=== PATIENT | male | born 1995 | race Hispanic/Latino ===

== ENCOUNTER 2020-02-17 08:35 | Emergency (ER) | payer SELFPAY ==
[2020-02-17] MEDS ORDERED: ACETAMINOPHEN 500 MG TAB ONE (09:14)
[2020-02-17 09:26] LABS: Urine Blood TRACE (NEG); Urine Glucose NEGATIVE (NEG); Urine Protein NEGATIVE (NEG); Urine Specific Gravity 1.025 (1.005-1.030)
--- NOTE | 2020-02-17 09:54 | ER ---
Nurse's Notes [facility] Name: Toni Gonzalez Age: 24 yrs Sex: Male : 1995 Arrival Date: 02/17/2020 Time: 08:38 Bed 8 Private MD: Diagnosis: Acute upper respiratory infection, unspecified Presentation: 02/16 08:44 Chief complaint: Patient states: "slight cough, feeling dehydrated, thirsty, and with aa5 no taste in my mouth". Pt denies fever, denies SOB, denies body aches, denies feeling weak. 08:44 Method Of Arrival: Ambulatory aa5 08:44 Coronavirus screen: Proceed with normal triage. Patient reports a cough. Patient denies aa5 shortness of breath or difficulty breathing. Patient denies travel on a cruise ship or to a country the [facility] currently lists as an affected area. Patient denies contact with known and/or suspected case of COVID-19. Ebola Screen: Patient negative for fever greater than or equal to 101.5 degrees Fahrenheit, and additional compatible Ebola Virus Disease symptoms. Initial Sepsis Screen: Does the patient meet any 2 criteria? RR > 20 per min. HR > 90 bpm. Does the patient have a suspected source of infection? No. Patient's initial sepsis screen is negative. Risk Assessment: Do you want to hurt yourself or someone else? Patient reports no desire to harm self or others. Onset of symptoms was February 16, 2020. 08:44 Acuity: JOSE 4 aa5 Triage Assessment: 08:45 Headache History: The patient has had previous headaches and this one is similar to bp previous episodes. General: Appears in no apparent distress. comfortable, obese, Behavior is cooperative, appropriate for age, anxious. Pain: Complains of pain in head Pain currently is 5 out of 10 on a pain scale. Pain began 1 day ago. Also complains of no other associated symptoms. EENT: No deficits noted. Neuro: Level of Consciousness is awake, alert, obeys commands, Oriented to person, place, time, situation, Appropriate for age. Cardiovascular: No deficits noted. Respiratory: No deficits noted. GI: No signs and/or symptoms were reported involving the gastrointestinal system. : No signs and/or symptoms were reported regarding the genitourinary system. Derm: No deficits noted. Musculoskeletal: No deficits noted. Historical: - Allergies: 08:44 No Known Allergies; aa5 - Home Meds: 08:44 None [Active]; aa5 - PMHx: 08:44 None; aa5 - PSHx: 08:44 None; aa5 - Immunization history:: Adult Immunizations unknown. - Social history:: Smoking status: Patient denies any tobacco usage or history of. Screenin:00 Abuse screen: Denies threats or abuse. Denies injuries from another. Nutritional bp screening: No deficits noted. Tuberculosis screening: No symptoms or risk factors identified. Fall Risk None identified. Assessment: 08:45 General: SEE TRIAGE NOTE. bp 09:45 Reassessment: VS STABLE ON MONITOR. NO ACUTE S/S NOTED. bp 10:17 Reassessment: PT D/C HOME AMBULATORY, DX WITH VIRAL URI. bp Vital Signs: 08:44 BP 134 / 67; Pulse 113; Resp 24 S; Temp 100.1(O); Pulse Ox 99% on R/A; Weight 158.76 kg aa (R); Height 5 ft. 9 in. (175.26 cm) (R); Pain 0/10; 09:48 BP 101 / 74; Pulse 76; Resp 16; Pulse Ox 96% ; bp 10:16 BP 118 / 76; Pulse 83; Resp 16; Temp 99.5; Pulse Ox 97% ; bp 08:44 Body Mass Index 51.69 (158.76 kg, 175.26 cm) aa ED Course: 08:38 Patient arrived in ED. ag5 08:41 Rosemary Neal FNP-C is [facility]. kb 08:41 Cayden Mercer MD is Attending Physician. kb 08:44 Joel Bird, CATALINO is Primary Nurse. bp 08:44 Arm band placed on Patient placed in an exam room, on a stretcher. aa5 08:56 Triage completed. aa5 09:00 Patient has correct armband on for positive identification. Bed in low position. Call bp light in reach. Side rails up X2. 09:02 Flu Sent. lt1 10:17 No provider procedures requiring assistance completed. Patient did not have IV access bp during this emergency room visit. Administered Medications: 09:05 Drug: Tylenol 1000 mg Route: PO; bp 10:16 Follow up: Response: Temperature is decreased bp Outcome: 09:53 Discharge ordered by MD. strickland 10:17 Discharged to home ambulatory. bp 10:17 Condition: stable 10:17 Discharge instructions given to patient, Instructed on discharge instructions, follow up and referral plans. Demonstrated understanding of instructions, follow-up care. 10:17 Patient left the ED. bp Signatures: Rosemary Neal, FUSION OPERATOR-C FUSION OPERATOR-Hilda Lockett RN RN aa5 Joel Bird RN RN bp Yonathan Alaniz ag5 Asuncion Rodriguez [facility] [place] [facility]
--- NOTE | 2020-02-17 09:54 | EDPHYS ---
Physician Documentation [facility] Name: Toni Gonzalez Age: 24 yrs Sex: Male : 1995 Arrival Date: 02/17/2020 Time: 08:38 Bed 8 Private MD: ED Physician Cayden Mercer HPI: 02/16 09:02 This 24 yrs old Male presents to ER via Ambulatory with complaints of Headache. kb 09:02 The patient or guardian reports cough, that is intermittent, described as mild, with no kb sputum. Onset: The symptoms/episode began/occurred last night. Severity of symptoms: At their worst the symptoms were mild, in the emergency department the symptoms are unchanged. Modifying factors: The symptoms are alleviated by nothing, the symptoms are aggravated by nothing. Associated signs and symptoms: The patient has no apparent associated signs or symptoms. The patient has not experienced similar symptoms in the past. The patient has not recently seen a physician. Pt reports chills when he got out of the shower last night, this morning has a slight cough, headache and feels dehydrated. Drank some pedialyte and took a tamiflu this morning. Tamiflu was prescribed to him in August when he had the flu.. Historical: - Allergies: 08:44 No Known Allergies; aa5 - Home Meds: 08:44 None [Active]; aa5 - PMHx: 08:44 None; aa5 - PSHx: 08:44 None; aa5 - Immunization history:: Adult Immunizations unknown. - Social history:: Smoking status: Patient denies any tobacco usage or history of. ROS: 09:00 ENT: Negative for injury, pain, and discharge, Cardiovascular: Negative for chest pain, kb palpitations, and edema, Abdomen/GI: Negative for abdominal pain, nausea, vomiting, diarrhea, and constipation, Back: Negative for injury and pain, MS/Extremity: Negative for injury and deformity, Skin: Negative for injury, rash, and discoloration. 09:00 Constitutional: Positive for chills, malaise. 09:00 Respiratory: Positive for cough, with no reported sputum. 09:00 Neuro: Positive for headache. Exam: 09:02 Constitutional: This is a well developed, well nourished patient who is awake, alert, kb and in no acute distress. Head/Face: Normocephalic, atraumatic. ENT: Nares patent. No nasal discharge, no septal abnormalities noted. Tympanic membranes are normal and external auditory canals are clear. Oropharynx with no redness, swelling, or masses, exudates, or evidence of obstruction, uvula midline. Mucous membranes moist. Neck: Trachea midline, no thyromegaly or masses palpated, and no cervical lymphadenopathy. Supple, full range of motion without nuchal rigidity, or vertebral point tenderness. No Meningismus. Chest/axilla: Normal chest wall appearance and motion. Nontender with no deformity. No lesions are appreciated. Cardiovascular: Regular rate and rhythm with a normal S1 and S2. No gallops, murmurs, or rubs. Normal PMI, no JVD. No pulse deficits. Respiratory: Lungs have equal breath sounds bilaterally, clear to auscultation and percussion. No rales, rhonchi or wheezes noted. No increased work of breathing, no retractions or nasal flaring. Abdomen/GI: Soft, non-tender, with normal bowel sounds. No distension or tympany. No guarding or rebound. No evidence of tenderness throughout. Skin: Warm, dry with normal turgor. Normal color with no rashes, no lesions, and no evidence of cellulitis. MS/ Extremity: Pulses equal, no cyanosis. Neurovascular intact. Full, normal range of motion. Neuro: Awake and alert, GCS 15, oriented to person, place, time, and situation. Cranial nerves II-XII grossly intact. Motor strength 5/5 in all extremities. Sensory grossly intact. Cerebellar exam normal. Normal gait. Vital Signs: 08:44 BP 134 / 67; Pulse 113; Resp 24 S; Temp 100.1(O); Pulse Ox 99% on R/A; Weight 158.76 kg aa5 (R); Height 5 ft. 9 in. (175.26 cm) (R); Pain 0/10; 09:48 BP 101 / 74; Pulse 76; Resp 16; Pulse Ox 96% ; bp 10:16 BP 118 / 76; Pulse 83; Resp 16; Temp 99.5; Pulse Ox 97% ; bp 08:44 Body Mass Index 51.69 (158.76 kg, 175.26 cm) aa5 MDM: 08:46 Patient medically screened. kb 09:00 Data reviewed: vital signs, nurses notes. Data interpreted: Pulse oximetry: on room air kb is 99 %. Interpretation: normal. 09:52 Counseling: I had a detailed discussion with the patient and/or guardian regarding: the kb historical points, exam findings, and any diagnostic results supporting the discharge/admit diagnosis, lab results, the need for outpatient follow up, a family practitioner, to return to the emergency department if symptoms worsen or persist or if there are any questions or concerns that arise at home. 02/16 08:50 Order name: Flu; Complete Time: 09:52 kb 02/16 09:11 Order name: Urine Dipstick--Ancillary (enter results); Complete Time: 09:28 tt3 02/16 08:50 Order name: Urine Dipstick-Ancillary (obtain specimen); Complete Time: 09:02 kb Administered Medications: 09:05 Drug: Tylenol 1000 mg Route: PO; bp 10:16 Follow up: Response: Temperature is decreased bp Disposition: 16:14 Co-signature as Attending Physician, Cayden Mercer MD I agree with the assessment and kdr plan of care. Disposition: 02/17/20 09:53 Discharged to Home. Impression: Acute upper respiratory infection, unspecified. - Condition is Stable. - Discharge Instructions: Upper Respiratory Infection, Adult, [id number], Viral Respiratory Infection, [id number]. - Work release form, Medication Reconciliation Form, Thank You Letter, Antibiotic Education, Prescription Opioid Use form. - Follow up: Emergency Department; When: As needed; Reason: Worsening of condition. Follow up: Private Physician; When: 2 - 3 days; Reason: Recheck today's complaints, Continuance of care, Re-evaluation by your physician. Signatures: Dispatcher [employer] EDRosemary Silva, FELT CEMENTER-C FELT CEMENTER-Ckb Cayden Mercer MD MD [facility] Hilda Villela, RN RN aa5 Joel Bird, RN RN bp Corrections: (The following items were deleted from the chart) 10:17 09:53 02/17/2020 09:53 Discharged to Home. Impression: Acute upper respiratory bp infection, unspecified. Condition is Stable. Forms are Medication Reconciliation Form, Thank You Letter, Antibiotic Education, Prescription Opioid Use. Follow up: Emergency Department; When: As needed; Reason: Worsening of condition. Follow up: Private Physician; When: 2 - 3 days; Reason: Recheck today's complaints, Continuance of care, Re-evaluation by your physician. kb
[2020-02-17 10:32] VITALS: BP 118/76; TEMP 99.5; O2SAT 97
== END 2020-02-17 10:17 | disposition home or self-care (01) ==
LOC: ER 08:35
DX: J06.9 Acute upper respiratory infection, unspecified (principal)
CPT/HCPCS: 81003; 87804; 99283